=== PATIENT | male | born 1990 | race African-American/Black ===

== ENCOUNTER 2024-03-03 04:24 | Day surgery (SDC) | payer OTHER ==
[2024-02-27 16:41] VITALS: BMI 27.9
[2024-03-03] MEDS ORDERED: LIDOCAINE HCL 1%, 10 MG/ML (20ML VIAL) ONE (11:05)
[2024-03-03] MEDS ORDERED: PROPOFOL 40 ML ONE (11:16)
[2024-03-03] MEDS ORDERED: MIDAZOLAM HCL 2 MG/2 ML SINGLE DOSE VIAL ONE (11:17)
[2024-03-03] MEDS: ceFAZolin SODIUM 1 GM VIAL IVPB ONE (11:25)
[2024-03-03] MEDS: LIDOCAINE HCL 1%, 10 MG/ML (20ML VIAL) NR ONE ×2 (11:42)
[2024-03-03] MEDS: BUPIVACAINE HCL/PF 0.5% (5 MG/ML) 30 ML VIAL IJ ONE ×2 (11:42)
[2024-03-03] MEDS ORDERED: oxyCODONE HCL 5 MG TABLET PO PRN ×2 (12:22)
[2024-03-03] MEDS ORDERED: ONDANSETRON 4 MG/2 ML VIAL IVPUSH PRN (12:22)
[2024-03-03 14:14] VITALS: RESP 18
[2024-03-03 14:37] VITALS: BP 141/82; PULSE 89; TEMP 97.3
== END 2024-03-03 15:32 | disposition home or self-care (01) ==
LOC: JASU-SURG 04:24
PROVIDERS: ATTEND Urology
PROC: 0VBQ0ZZ Excision of Bilateral Vas Deferens, Open Approach (ICD-10-PCS; principal; 2024-03-03 10:45)
DX: Z30.2 Encounter for sterilization (principal)
CPT/HCPCS: 88302-TC; 94760